=== PATIENT | male | born 1945 ===

== ENCOUNTER 2021-01-10 08:42 | Inpatient (IN) ==
[~2021-01-10 08:42] MED LIST: Aspirin EC 325 mg TAB.EC PO SCH
[2021-01-10 09:55] LABS: ABS Eosinophils 0.1 10^3/ul (0-0.6); ABS Lymphocytes 1.2 10^3/ul (1.0-4.8); ABS Monocytes 0.7 10^3/ul (0-0.8); ABS Neutrophils 8.9 10^3/ul (1.5-7.7); Eosinophil % 0.8 %; Hematocrit 36 % (42-52); Hemoglobin 11.6 g/dL (14.0-18.0); Lymphocyte % 10.7 %; Mean Corpuscular HGB Conc 32 g/dL (31-36); Mean Corpuscular Hemoglobin 25 pg (27-31); Mean Corpuscular Volume 78 fL (80-94); Platelet Count 407 10^3/uL (150-450); Red Blood Count 4.63 10^6 /uL (4.18-5.48); Red Cell Distribution Width 16 % (10-15); White Blood Count 10.9 10^3/uL (3.5-10.8)
[2021-01-10 10:11] LABS: Albumin 3.6 g/dL (3.2-5.2); Albumin/Globulin Ratio 0.9 (1-3); C Reactive Protein 20.3 mg/L (<8.01); Calcium 9.3 mg/dL (8.6-10.3); Potassium 4.1 mmol/L (3.5-5.0); Total Bilirubin 0.3 mg/dL (0.2-1.0); Total Protein 7.6 g/dL (6.4-8.9)
[2021-01-10 11:14] LABS: Erythrocyte Sed Rate 85 mm/Hr (0-19)
[2021-01-10] MEDS ORDERED: ceFAZolin 1 GM ADVAN 1 GM in NS 0.9% 50 ML 50 ML IVPB ONE (11:41)
[2021-01-10] MEDS ORDERED: NS 0.9% 1000 ml BAG 1,000 ML IV ONE (11:41)
[2021-01-10] MEDS ORDERED: Al Hydrox/Mg Hydrox/Simet LIQ 30 ML UDC PO PRN (13:39)
[2021-01-10] MEDS ORDERED: Ondansetron 4 mg VIAL 2 MG/ML 2 ml VIAL IV PRN (13:39)
[2021-01-10] MEDS: Cefepime 2 GM in Dextrose 2 GM/50 ML BAG IV SCH (17:01)
[2021-01-10] MEDS: Heparin 5000 UNITS/ML 1 mL VIAL SUBCUT SCH ×2 (17:21→22:28)
[2021-01-10] MEDS ORDERED: Dextrose 50% Syringe 50 ml 25 GM/50 ML SYRINGE IV PUSH PRN (21:14)
[2021-01-10] MEDS: ZINC 50 MG PO SCH (22:10)
[2021-01-10] MEDS: Aspirin EC 325 mg TAB.EC PO SCH (23:55)
[2021-01-11] MEDS: Cefepime 2 GM in Dextrose 2 GM/50 ML BAG IV SCH ×2 (03:45→16:00)
[2021-01-11 06:44] LABS: ABS Eosinophils 0.3 10^3/ul (0-0.6); ABS Lymphocytes 1.5 10^3/ul (1.0-4.8); ABS Monocytes 0.8 10^3/ul (0-0.8); Eosinophil % 2.9 %; Hematocrit 34 % (42-52); Hemoglobin 10.9 g/dL (14.0-18.0); Lymphocyte % 17.4 %; Mean Corpuscular HGB Conc 32 g/dL (31-36); Mean Corpuscular Hemoglobin 25 pg (27-31); Mean Corpuscular Volume 77 fL (80-94); Mean Platelet Volume 7.1 fL (7.4-10.4); Platelet Count 369 10^3/uL (150-450); Red Blood Count 4.37 10^6 /uL (4.18-5.48); Red Cell Distribution Width 16 % (10-15); White Blood Count 8.7 10^3/uL (3.5-10.8)
[2021-01-11 07:32] LABS: Albumin 3.3 g/dL (3.2-5.2); Calcium 8.7 mg/dL (8.6-10.3); Potassium 3.9 mmol/L (3.5-5.0); Total Bilirubin 0.4 mg/dL (0.2-1.0)
[2021-01-11 07:38] LABS: Albumin/Globulin Ratio 0.9 (1-3); EGFR Non-African American 51.2 (>60); Globulin 3.7 g/dL (2-4)
[2021-01-11] MEDS: Enoxaparin 40 MG/0.4 ML SYR SUBCUT SCH (08:12)
[2021-01-11] MEDS: ZINC 50 MG PO SCH (08:13)
[2021-01-11] MEDS ORDERED: Aspirin EC 325 mg TAB.EC PO SCH (09:00)
[2021-01-11] MEDS: metroNIDAZOLE IV 500 MG/100ML 500 MG/100 ML BAG IVPB SCH (13:48)
[2021-01-11] MEDS: Aspirin EC 325 mg TAB.EC PO SCH (20:31)
[2021-01-12] MEDS: metroNIDAZOLE IV 500 MG/100ML 500 MG/100 ML BAG IVPB SCH ×2 (01:46→15:50)
[2021-01-12] MEDS: Cefepime 2 GM in Dextrose 2 GM/50 ML BAG IV SCH ×2 (02:50→17:11)
[2021-01-12] MEDS: Cholecalciferol (VIT D3) 1,000 unit TAB PO SCH (07:25)
[2021-01-12] MEDS: Enoxaparin 40 MG/0.4 ML SYR SUBCUT SCH (07:31)
[2021-01-12] MEDS: Aspirin EC 325 mg TAB.EC PO SCH (20:27)
[2021-01-13] MEDS: metroNIDAZOLE IV 500 MG/100ML 500 MG/100 ML BAG IVPB SCH ×2 (02:33→13:27)
[2021-01-13] MEDS: Cefepime 2 GM in Dextrose 2 GM/50 ML BAG IV SCH ×2 (04:02→16:41)
[2021-01-13 06:59] LABS: Hematocrit 35 % (42-52); Hemoglobin 11.3 g/dL (14.0-18.0); Mean Corpuscular HGB Conc 32 g/dL (31-36); Mean Corpuscular Hemoglobin 25 pg (27-31); Mean Corpuscular Volume 77 fL (80-94); Mean Platelet Volume 7.1 fL (7.4-10.4); Platelet Count 361 10^3/uL (150-450); Red Blood Count 4.53 10^6 /uL (4.18-5.48); Red Cell Distribution Width 16 % (10-15); White Blood Count 8.7 10^3/uL (3.5-10.8)
[2021-01-13 07:14] LABS: C Reactive Protein 13.03 mg/L (<8.01); Calcium 8.8 mg/dL (8.6-10.3); EGFR Non-African American 50.4 (>60); Potassium 4.2 mmol/L (3.5-5.0)
[2021-01-13] MEDS: Enoxaparin 40 MG/0.4 ML SYR SUBCUT SCH (08:47)
[2021-01-13] MEDS: Cholecalciferol (VIT D3) 1,000 unit TAB PO SCH (08:47)
[2021-01-13] MEDS: Aspirin EC 325 mg TAB.EC PO SCH (20:16)
[2021-01-14] MEDS: metroNIDAZOLE IV 500 MG/100ML 500 MG/100 ML BAG IVPB SCH (01:41)
[2021-01-14] MEDS: Cefepime 2 GM in Dextrose 2 GM/50 ML BAG IV SCH (02:48)
[2021-01-14] MEDS: Enoxaparin 40 MG/0.4 ML SYR SUBCUT SCH (07:59)
[2021-01-14] MEDS: Cholecalciferol (VIT D3) 1,000 unit TAB PO SCH (08:00)
[2021-01-14] MEDS: ceFAZolin 1 GM ADVAN 1 GM in NS 0.9% 50 ML 50 ML IVPB SCH ×2 (11:11→19:39)
[2021-01-14] MEDS: Aspirin EC 325 mg TAB.EC PO SCH (19:44)
[2021-01-15] MEDS: ceFAZolin 1 GM ADVAN 1 GM in NS 0.9% 50 ML 50 ML IVPB SCH (03:07)
[2021-01-15 05:01] LABS: ABS Eosinophils 0.3 10^3/ul (0-0.6); ABS Lymphocytes 1.8 10^3/ul (1.0-4.8); ABS Monocytes 0.8 10^3/ul (0-0.8); ABS Neutrophils 5.9 10^3/ul (1.5-7.7); Eosinophil % 3.7 %; Hematocrit 35 % (42-52); Hemoglobin 11.2 g/dL (14.0-18.0); Mean Corpuscular HGB Conc 32 g/dL (31-36); Mean Corpuscular Hemoglobin 25 pg (27-31); Mean Corpuscular Volume 78 fL (80-94); Mean Platelet Volume 7.1 fL (7.4-10.4); Platelet Count 355 10^3/uL (150-450); Red Blood Count 4.45 10^6 /uL (4.18-5.48); Red Cell Distribution Width 16 % (10-15); White Blood Count 8.8 10^3/uL (3.5-10.8)
[2021-01-15 05:23] LABS: Albumin 3.2 g/dL (3.2-5.2); Albumin/Globulin Ratio 0.9 (1-3); Calcium 8.8 mg/dL (8.6-10.3); EGFR African American 53.7 (>60); EGFR Non-African American 44.4 (>60); Globulin 3.5 g/dL (2-4); Total Bilirubin 0.3 mg/dL (0.2-1.0); Total Protein 6.7 g/dL (6.4-8.9)
[2021-01-15 07:38] VITALS: BP 156/74
[2021-01-15] MEDS: Cholecalciferol (VIT D3) 1,000 unit TAB PO SCH (07:46)
[2021-01-15] MEDS: Enoxaparin 40 MG/0.4 ML SYR SUBCUT SCH (07:46)
[2021-01-15 08:58] LABS: TSH Ultra Thyroid Stim Horm 8.01 mcIU/mL (0.34-5.60)
[2021-01-15 09:46] LABS: Free T4 0.79 ng/dL (0.61-1.12)
[2021-01-18 00:54] LABS: IgG Immunoblot Positive (Negative); IgM Immunoblot Negative (Negative)
== END 2021-01-15 10:30 | disposition home or self-care (01) | DRG 540 ==
LOC: ED 08:42 → MED 14:54
PROVIDERS: ADMIT Hospitalist; ATTEND Pediatrics

== ENCOUNTER 2021-03-07 08:54 | Inpatient (IN) ==
[2021-03-07 10:44] LABS: ABS Eosinophils 0.2 10^3/ul (0-0.6); ABS Lymphocytes 1.4 10^3/ul (1.0-4.8); ABS Monocytes 0.8 10^3/ul (0-0.8); ABS Neutrophils 11.1 10^3/ul (1.5-7.7); Eosinophil % 1.2 %; Hematocrit 37 % (42-52); Hemoglobin 11.6 g/dL (14.0-18.0); Lymphocyte % 10.6 %; Mean Corpuscular HGB Conc 32 g/dL (31-36); Mean Corpuscular Hemoglobin 25 pg (27-31); Mean Corpuscular Volume 77 fL (80-94); Platelet Count 403 10^3/uL (150-450); Red Blood Count 4.76 10^6 /uL (4.18-5.48); Red Cell Distribution Width 18 % (10-15); White Blood Count 13.6 10^3/uL (3.5-10.8)
[2021-03-07 10:53] LABS: Urine Appearance Clear; Urine Bilirubin Negative (Negative); Urine Blood 2+ (Negative); Urine Color Yellow; Urine Glucose Negative (Negative); Urine Ketones Negative (Negative); Urine Nitrite Negative (Negative); Urine Protein Negative (Negative); Urine Specific Gravity 1.016 (1.002-1.030); Urine Urobilinogen Negative (Negative)
[2021-03-07 10:55] LABS: Activated Partial Thrombo Time 36.7 seconds (26.0-38.0); INR 1.12 (0.86-1.15)
[2021-03-07 11:06] LABS: Troponin I 0.02 ng/mL (<0.03)
[2021-03-07 11:07] LABS: Urine Bacteria Absent (Absent); Urine Red Blood Cell Trace(0-2/hpf) (Absent); Urine Squamous Epithelial Cell Present (Absent); Urine White Blood Cell Trace(0-5/hpf) (Absent)
[2021-03-07 11:32] LABS: Albumin 3.9 g/dL (3.2-5.2); Albumin/Globulin Ratio 1.1 (1-3); C Reactive Protein 34.09 mg/L (<8.01); Calcium 9.3 mg/dL (8.6-10.3); EGFR African American 54.8 (>60); EGFR Non-African American 45.3 (>60); Globulin 3.6 g/dL (2-4); Potassium 4.1 mmol/L (3.5-5.0); Total Bilirubin 0.4 mg/dL (0.2-1.0); Total Protein 7.5 g/dL (6.4-8.9)
[2021-03-07 13:29] LABS: Erythrocyte Sed Rate 54 mm/Hr (0-19)
[2021-03-07] MEDS ORDERED: Ondansetron 4 mg VIAL 2 MG/ML 2 ml VIAL IV PRN (17:35)
[2021-03-07] MEDS: Simvastatin 20 mg TAB (NF) PO SCH (21:19)
[2021-03-07] MEDS: Cefepime 2 GM in Dextrose 2 GM/50 ML BAG IV SCH (21:19)
[2021-03-07] MEDS: Enoxaparin 40 MG/0.4 ML SYR SUBCUT SCH (21:24)
[2021-03-08 06:05] LABS: C Reactive Protein 37.1 mg/L (<8.01); Calcium 8.8 mg/dL (8.6-10.3); EGFR African American 56.1 (>60); EGFR Non-African American 46.3 (>60); Potassium 3.9 mmol/L (3.5-5.0)
[2021-03-08] MEDS: Cefepime 2 GM in Dextrose 2 GM/50 ML BAG IV SCH ×2 (09:00→19:39)
[2021-03-08] MEDS ORDERED: Aspirin EC 325 mg TAB.EC PO SCH (09:00)
[2021-03-08] MEDS ORDERED: Perflutren Lipid Microsphere 3 ML VIAL ONE (09:54)
[2021-03-08] MEDS: Enoxaparin 40 MG/0.4 ML SYR SUBCUT SCH (17:19)
[2021-03-08] MEDS: Aspirin EC 325 mg TAB.EC PO SCH (20:32)
[2021-03-08] MEDS: Simvastatin 20 mg TAB (NF) PO SCH (20:32)
[2021-03-09] MEDS: Cefepime 2 GM in Dextrose 2 GM/50 ML BAG IV SCH ×2 (07:40→20:02)
[2021-03-09 09:06] LABS: ABS Eosinophils 0.2 10^3/ul (0-0.6); ABS Lymphocytes 1.3 10^3/ul (1.0-4.8); ABS Monocytes 0.6 10^3/ul (0-0.8); ABS Neutrophils 7.2 10^3/ul (1.5-7.7); Eosinophil % 2.5 %; Hematocrit 36 % (42-52); Hemoglobin 11.6 g/dL (14.0-18.0); Lymphocyte % 14.3 %; Mean Corpuscular HGB Conc 33 g/dL (31-36); Mean Corpuscular Hemoglobin 25 pg (27-31); Mean Corpuscular Volume 77 fL (80-94); Mean Platelet Volume 7.5 fL (7.4-10.4); Platelet Count 365 10^3/uL (150-450); Red Blood Count 4.66 10^6 /uL (4.18-5.48); Red Cell Distribution Width 18 % (10-15); White Blood Count 9.4 10^3/uL (3.5-10.8)
[2021-03-09 09:19] LABS: Calcium 8.7 mg/dL (8.6-10.3); EGFR African American 50.8 (>60); Potassium 4.1 mmol/L (3.5-5.0)
[2021-03-09] MEDS: Enoxaparin 40 MG/0.4 ML SYR SUBCUT SCH (17:32)
[2021-03-09] MEDS: Aspirin EC 325 mg TAB.EC PO SCH (20:08)
[2021-03-09] MEDS: Simvastatin 20 mg TAB (NF) PO SCH (20:08)
[2021-03-10 01:40] LABS: Anaplasma phagocytophilum Negative (Negative); B. miyamotoi PCR, B Negative (Negative); Babesia divergens/MO-1 Negative (Negative); Babesia ducani Negative (Negative); Ehrlichia chaffeensis Negative (Negative); Ehrlichia ewingii/canis Negative (Negative); Ehrlichia muris eauclairensis Negative (Negative)
[2021-03-10 06:51] LABS: Calcium 8.9 mg/dL (8.6-10.3); EGFR African American 48.4 (>60); Magnesium 2.1 mg/dL (1.9-2.7); Potassium 4.5 mmol/L (3.5-5.0)
[2021-03-10] MEDS: Cefepime 2 GM in Dextrose 2 GM/50 ML BAG IV SCH ×2 (07:56→21:01)
[2021-03-10] MEDS ORDERED: NS 0.9% 1000 ml BAG 1,000 ML IV SCH (13:45)
[2021-03-10] MEDS: Enoxaparin 40 MG/0.4 ML SYR SUBCUT SCH (16:00)
[2021-03-10] MEDS: Simvastatin 20 mg TAB (NF) PO SCH (21:02)
[2021-03-10] MEDS: Aspirin EC 325 mg TAB.EC PO SCH (21:02)
[2021-03-11 06:11] LABS: ABS Eosinophils 0.3 10^3/ul (0-0.6); ABS Lymphocytes 1.7 10^3/ul (1.0-4.8); ABS Monocytes 0.7 10^3/ul (0-0.8); ABS Neutrophils 7.7 10^3/ul (1.5-7.7); Eosinophil % 2.7 %; Hematocrit 37 % (42-52); Hemoglobin 11.9 g/dL (14.0-18.0); Lymphocyte % 16.4 %; Mean Corpuscular HGB Conc 32 g/dL (31-36); Mean Corpuscular Hemoglobin 25 pg (27-31); Mean Corpuscular Volume 78 fL (80-94); Mean Platelet Volume 7.1 fL (7.4-10.4); Platelet Count 373 10^3/uL (150-450); Red Blood Count 4.74 10^6 /uL (4.18-5.48); Red Cell Distribution Width 18 % (10-15); White Blood Count 10.5 10^3/uL (3.5-10.8)
[2021-03-11 06:30] LABS: C Reactive Protein 15.07 mg/L (<8.01); Calcium 8.8 mg/dL (8.6-10.3); EGFR African American 46.1 (>60); EGFR Non-African American 38.1 (>60); Potassium 4.1 mmol/L (3.5-5.0)
[2021-03-11] MEDS: Cefepime 2 GM in Dextrose 2 GM/50 ML BAG IV SCH ×2 (09:02→21:15)
[2021-03-11] MEDS ORDERED: Bupivacaine 0.25% SDV PF 10 ML VIAL INJ ONE (15:52)
[2021-03-11] MEDS: Enoxaparin 40 MG/0.4 ML SYR SUBCUT SCH (17:47)
[2021-03-11] MEDS: Simvastatin 20 mg TAB (NF) PO SCH (21:14)
[2021-03-11] MEDS: Aspirin EC 325 mg TAB.EC PO SCH (21:14)
[2021-03-12] MEDS: Cefepime 2 GM in Dextrose 2 GM/50 ML BAG IV SCH ×2 (08:31→21:44)
[2021-03-12] MEDS: Enoxaparin 40 MG/0.4 ML SYR SUBCUT SCH (17:52)
[2021-03-12] MEDS: Simvastatin 20 mg TAB (NF) PO SCH (21:44)
[2021-03-12] MEDS: Aspirin EC 325 mg TAB.EC PO SCH (21:44)
[2021-03-13] MEDS: Cefepime 2 GM in Dextrose 2 GM/50 ML BAG IV SCH (07:18)
[2021-03-13 08:18] VITALS: BP 145/75
== END 2021-03-13 10:00 | disposition home or self-care (01) | DRG 872 ==
LOC: MED 08:54 → ED 08:54 → OBSVTOIN 18:21 → MED 20:24
PROVIDERS: ADMIT Hospitalist; ATTEND Student in an Organized Health Care Education/Training Program